=== PATIENT | male | born 1970 ===

== ENCOUNTER 2017-03-14 20:03 | Inpatient (IN) | payer MEDICAID ==
[2017-03-14 20:56] VITALS: BMI 33.6
[2017-03-14] MEDS ORDERED: Sodium Chloride 0.9% 1,000 ML IV STA (20:57)
[2017-03-14 21:26] LABS: HEMATOCRIT 38.6 % (42.0-52.0); MEAN CELL VOLUME 89.6 fl (80.0-105.0); MEAN CORPUSCULAR HEMOGLOBIN 31.3 pg (25.0-35.0); MEAN PLATELET VOLUME 10.9 fl (7.0-11.0); RED CELL DISTRIBUTION WIDTH 12.9 % (11.5-14.5); WHITE BLOOD COUNT 13.9 10^3/ul (4.5-11.0)
[2017-03-14 21:29] LABS: VENOUS BLOOD GAS BASE EXCESS 2.4 mmol/L (0.0-2.0); VENOUS BLOOD PH 7.42 (7.32-7.43)
[2017-03-14 21:36] LABS: ALB/GLOB RATIO 1.4 (1.1-1.8); ALKALINE PHOSPHATASE 61 U/L (38-126); ALT/SGPT 31 U/L (7-56); AST/SGOT 23 U/L (17-59); BILIRUBIN,TOTAL 0.4 mg/dL (0.2-1.3); BLOOD UREA NITROGEN 12 mg/dL (7-21); CARBON DIOXIDE 23 mmol/L (21-33); GFR AFRICAN-AMERICAN > 60; GLUCOSE,RANDOM 110 mg/dL (70-110); TOTAL PROTEIN 6.6 g/dL (5.8-8.3)
[2017-03-14 21:51] LABS: CALCIUM 8.6 mg/dL (8.4-10.5); CHLORIDE 101 mmol/L (95-110); SODIUM 137 mmol/L (132-148)
--- NOTE | 2017-03-14 21:52 | ED PDOC ---
Arrival/HPI - General Chief Complaint: Allergic Reaction Time Seen by Provider: 03/14/17 20:18 Historian: Patient - History of Present Illness Narrative History of Present Illness (Text): 03/14/17 20:55 Ftiz Martinez is a 46 year old male who presents to the Emergency department complaining of severe skin infections to bilateral axillary areas, groin, and an infected rash to bilateral arms and legs. Patient also reports associated low -grade fever, chills and generalized weakness. Patient states he has been using steroid cream for his groin areas, which was prescribed to him previously for a fungal infection. Patient denies any nausea, vomiting, diarrhea, back pain, neck pain, headache, or any other complaints. Symptom Onset: Gradual Symptom Course: Unchanged Activities at Onset: Light Context: Home Past Medical History - Provider Review Nursing Documentation Reviewed: Yes - Cardiac Hx Cardiac Disorders: No - Pulmonary Hx Respiratory Disorders: No - Neurological Hx Neurological Disorder: No - Renal Hx Renal Disorder: No - Endocrine/Metabolic Hx Endocrine Disorders: Yes Hx Hypothyroidism: Yes (no medication) - Hematological/Oncological Hx Blood Disorders: No - Integumentary Hx Dermatological Disorder: No - Musculoskeletal/Rheumatological Hx Musculoskeletal Disorders: No - Gastrointestinal Hx Gastrointestinal Disorders: No - Genitourinary/Gynecological Hx Genitourinary Disorders: No - Psychiatric Hx Psychophysiologic Disorder: Yes Hx Anxiety: Yes Hx Depression: Yes Hx Substance Use: Yes - Anesthesia Hx Anesthesia: No Hx Malignant Hyperthermia: No Family/Social History - Physician Review Nursing Documentation Reviewed: Yes Family/Social History: Unknown Family HX Smoking Status: Never Smoked Hx Alcohol Use: No Hx Substance Use: Yes Substance used: marijuana Allergies/Home Meds Allergies/Adverse Reactions: Allergies No Known Allergies Allergy (Verified 03/14/17 20:56) Home Medications: Home Meds Medication Instructions Recorded Confirmed No Known Home Med 03/14/17 03/14/17 Review of Systems - Physician Review All systems were reviewed & negative as marked: Yes - Review of Systems Constitutional: Fevers, Other (+chills, +generalized weakness) Eyes: Normal ENT: Normal Respiratory: Normal. absent: SOB, Cough Cardiovascular: Normal. absent: Chest Pain Gastrointestinal: Normal. absent: Abdominal Pain, Diarrhea, Nausea, Vomiting Genitourinary Male: Normal. absent: Dysuria, Frequency, Hematuria, Urinary Output Changes Musculoskeletal: Normal. absent: Back Pain, Neck Pain Skin: Rash, Cellulitis Neurological: Normal. absent: Headache, Dizziness Endocrine: Normal Hemo/Lymphatic: Normal Psychiatric: Normal Physical Exam Vital Signs Reviewed: Yes Vital Signs Temp Pulse Resp BP Pulse Ox 03/14/17 23:29 100.4 F H 75 18 90/67 L 99 03/14/17 20:04 99.0 F 77 18 139/74 99 Temperature: Afebrile Blood Pressure: Normal Pulse: Regular Respiratory Rate: Normal Appearance: Positive for: Well-Appearing, Non-Toxic, Comfortable Pain Distress: None Mental Status: Positive for: Alert and Oriented X 3 - Systems Exam Head: Present: Atraumatic, Normocephalic Pupils: Present: PERRL Extroacular Muscles: Present: EOMI Conjunctiva: Present: Normal Mouth: Present: Moist Mucous Membranes Neck: Present: Normal Range of Motion Respiratory/Chest: Present: Clear to Auscultation, Good Air Exchange. No: Respiratory Distress, Accessory Muscle Use Cardiovascular: Present: Regular Rate and Rhythm, Normal S1, S2. No: Murmurs Abdomen: Present: Normal Bowel Sounds. No: Tenderness, Distention, Peritoneal Signs Back: Present: Normal Inspection Upper Extremity: No: Cyanosis, Edema Lower Extremity: No: Edema Neurological: Present: GCS=15, CN II-XII Intact, Speech Normal Skin: Present: Warm, Dry, Erythematous (Severely inflammed, reddened, and raised infected areas to bilateral axilla, scattered papular pustule rash to bilateral arms and legs) Psychiatric: Present: Alert, Oriented x 3, Normal Insight, Normal Concentration Medical Decision Making ED Course and Treatment: 03/14/17 20:55 Impression: 46 year old male complaining of severe skin infection to bilateral axillae and groin and infected rash, with fever, chills, and generalized weakness. Differential Diagnosis included but are not limited to: cellulitis vs. hidradenitis suppurativa Plan: -- Labs, blood cultures, VBG -- IV fluids -- Reassess and disposition Progress Notes: 03/14/17 22:[address] Villavicencio, biomedical service engineer donor relations associate, who is aware and agrees with plan. 03/14/17 23:[address] Paulette Dickey, who is aware and agrees with plan. Accepts pt in to hospitalist service. Pt will go to [facility] observation for cellulitis. Pt is no acute distress, discussed results and hospital observation plan with pt , who is aware and verbalizes understanding. - Lab Interpretations Lab Results: 03/14/17 21:10 03/14/17 21:10 Lab Results 03/14/17 21:10: TSH 3rd Generation 2.41 03/14/17 21:10: pO2 98 H, VBG pH 7.42, VBG pCO2 42.0, VBG HCO3 27.2, VBG Total CO2 28.5 H, VBG O2 Sat (Calc) 98.5 H, VBG Base Excess 2.4 H, VBG Potassium 4.3, Sodium 134.0, Chloride 104.0, Glucose 121 H, Lactate 0.9, FiO2 21.0, Venous Blood Potassium 4.3 03/14/17 21:10: WBC 13.9 H, RBC 4.31, Hgb 13.5 L, Hct 38.6 L, MCV 89.6, MCH 31.3 , MCHC 35.0, RDW 12.9, Plt Count 166, MPV 10.9 03/14/17 21:10: Sodium 137, Chloride 101, Potassium 4.0, Carbon Dioxide 23, Anion Gap 17, BUN 12, Creatinine 0.9, Est GFR ( Amer) > 60, Est GFR (Non- Af Amer) > 60, Random Glucose 110, Calcium 8.6, Total Bilirubin 0.4, AST 23, ALT 31, Alkaline Phosphatase 61, Total Protein 6.6, Albumin 3.9, Globulin 2.7, Albumin/Globulin Ratio 1.4 - Medication Orders Current Medication Orders: Diphenhydramine HCl (Benadryl) 50 mg IVP Q8 PRN PRN Reason: Itching / Pruritus Heparin Sodium (Porcine) (Heparin) 5,000 units SC Q8 LION PRN Reason: Protocol Last Admin: 03/15/17 03:42 Dose: 5,000 units Subcutaneous Administrations Document 03/15/17 03:42 AVL (Rec: 03/15/17 03:42 AVL [id number]) Injection Site MAR Injection Site Right Deltoid Charges for Administration # of Subcutaneous Administrations 1 Clindamycin Phosphate 600 mg/ (Sodium Chloride) 54 mls @ 102 mls/hr IVPB Q8 LION PRN Reason: Protocol Last Admin: 03/15/17 03:13 Dose: 102 mls/hr eMAR Start Stop Document 03/15/17 03:13 AVL (Rec: 03/15/17 03:14 AVL [id number]) Intravenous Solution Start Date 03/15/17 Start Time 02:00 End Date 03/15/17 End time 02:30 Total Infusion Time 30 Pantoprazole Sodium (Protonix Inj) 40 mg IVP DAILY LION Discontinued Medications Diphenhydramine HCl (Benadryl) 50 mg IVP STAT STA Stop: 03/15/17 00:11 Sodium Chloride (Sodium Chloride 0.9%) 1,000 mls @ 999 mls/hr IV .Q1H1M STA Stop: 03/14/17 21:57 Last Admin: 03/14/17 21:36 Dose: 999 mls/hr eMAR Start Stop Document 03/14/17 21:36 SF (Rec: 03/14/17 21:36 SF [id number]) Intravenous Solution Start Date 03/14/17 Start Time 21:36 End Date 03/14/17 End time 22:37 Total Infusion Time 61 Piperacillin Sod/Tazobactam Sod (Zosyn 3.375 In Ns 100ml) 100 mls @ 200 mls/hr IV STAT STA PRN Reason: Protocol Stop: 03/14/17 23:24 Last Admin: 03/14/17 23:44 Dose: 200 mls/hr eMAR Start Stop Document 03/14/17 23:44 NICOL (Rec: 03/14/17 23:44 NICOL [id number]) Intravenous Solution Start Date 03/14/17 Start Time 23:44 Vancomycin HCl (Vancomycin 1gm) 1 gm in 250 mls @ 133.333 mls/hr IVPB STAT STA PRN Reason: Protocol Stop: 03/15/17 00:52 Last Admin: 03/15/17 00:50 Dose: 133.333 mls/hr eMAR Start Stop Document 03/15/17 00:50 AVL (Rec: 03/15/17 00:51 AVL [id number]) Intravenous Solution Start Date 03/15/17 Start Time 00:50 End Date 03/15/17 End time 02:47 Total Infusion Time 117 Oxycodone/Acetaminophen (Percocet 5/325 Mg Tab) 1 tab PO STAT STA Stop: 03/14/17 23:15 Last Admin: 03/14/17 23:44 Dose: 1 tab [facility] Pain Assessment Document 03/14/17 23:44 NICOL (Rec: 03/14/17 23:45 NICOL [id number]) Pain Reassessment Is this a pain reassessment? Yes Sleep Is patient sleeping during reassessment? No Presence of Pain Presence of Pain Yes Location Left, Right or Bilateral Bilateral Pain Location Body Site Arm Re-Assess: [facility] Pain Assessment Document 03/15/17 00:44 AVL (Rec: 03/15/17 01:07 AVL [id number]) Pain Reassessment Is this a pain reassessment? Yes Sleep Is patient sleeping during reassessment? No Presence of Pain Presence of Pain No Pantoprazole Sodium (Protonix Inj) 80 mg IVP DAILY LION Permethrin (Permethrin 5% Cream) 30 gm TOP ONCE ONE Stop: 03/15/17 00:11 - Scribe Statement The provider has reviewed the documentation as recorded by the Tom August Provider Scribe Attestation: All medical record entries made by the Scribe were at my direction and personally dictated by me. I have reviewed the chart and agree that the record accurately reflects my personal performance of the history, physical exam, medical decision making, and the department course for this patient. I have also personally directed, reviewed, and agree with the discharge instructions and disposition. Disposition/Present on Arrival - Present on Arrival Any Indicators Present on Arrival: No History of DVT/PE: No History of Uncontrolled Diabetes: No Urinary Catheter: No History of Decub. Ulcer: No History Surgical Site Infection Following: None - Disposition Have Diagnosis and Disposition been Completed?: Yes Diagnosis: Cellulitis, Hidradenitis axillaris Disposition: HOSPITALIZED Disposition Time: 23:09 Patient Plan: Admission Patient Problems: Current Active Problems Problem Status Onset Cellulitis Acute Hidradenitis axillaris Acute Condition: STABLE
[2017-03-14] MEDS ORDERED: Vancomycin 1gm in NS 250ml 1 GM/250 ML BAG IVPB STA (23:00)
[2017-03-14] MEDS: Oxycodone/Acetaminophen 5/325 mg Tab PO STA (23:44)
[2017-03-14] MEDS: Piperacillin/Tazobact 3.375 gm 100 ML IV STA (23:44)
[2017-03-15] MEDS ORDERED: Permethrin 5% Cream(60 gm) TOP ONE (00:10)
[2017-03-15] MEDS ORDERED: DiphenhydrAMINE 50 mg/ml Inj IVP STA (00:10)
--- NOTE | 2017-03-15 00:10 | CP.PCM.HP ---
<SaudEber nuñez - Last Filed: 03/15/17 00:59> History of Present Illness - History of Present Illness History of Present Illness: 46 M with pertinent PMHx of hyperthyroidism presents with a 2 week duration of a pruritic papular rash on his entire trunk and b/l UE and LE, as well as multiple painful lesions in his b/l axillary and groin areas. Patient states that he did start using a new deodorant around the time the papular rash started , Degree, but does not remember if the rash started after or before. He states that the painful lesions in his axillary and groin areas started about 4 days ago. He started using steroid creams provided by his PCP a few days ago, but they did not help. He then started using an aloe lotion, which provided some relief. Patient states that he lives in an apartment building in [place] and that he has never had bed bugs before. He denies any recent sexual contact. He further denies any history of STDs. Patient denies f/ch/cp/sob/n/v/d/dysuria/change in urination at home. No further complaints. PSHx: Hand surgery PMHx: Hyperthyroidism All: NKDA SocHx: Marijuana and Hookah; No etOH, No cigarettes FamHx: DM Meds: No medications Present on Admission - Present on Admission Any Indicators Present on Admission: No Review of Systems - Hematologic/Lymphatic Additional comments: ROS: Constitutional: pt denies fever, chills, generalized weakness ENT: pt denies dysphagia, otalgia, hearing deficit, rhinorrhea Eyes: pt denies sudden loss of vision, diplopia, blurred vision MSK: pt denies muscle stiffness, joint pain, extremity cramping Cardio: pt denies sob, heart murmur, cp Pulm: pt denies cough, hemoptysis, wheeze GI: pt denies loss of appetite, abdominal pain, constipation, melena, n/v/d : pt denies burning on urination, urinary frequency, hematuria, urinary urgency Neuro: pt denies paresis, paresthesia, dizziness, keith, numbness, tingling Derm: +SEE HPI Endo: pt denies intolerance to heat/cold, diaphoresis, night sweats, polydipsia Psych: pt denies anxiety, depression, mood changes Past Patient History - Past Social History Smoking Status: Never Smoked - CARDIAC Hx Cardiac Disorders: No - PULMONARY Hx Respiratory Disorders: No - NEUROLOGICAL Hx Neurological Disorder: No - RENAL Hx Chronic Kidney Disease: No - ENDOCRINE/METABOLIC Hx Endocrine Disorders: Yes Hx Hypothyroidism: Yes (no medication) - HEMATOLOGICAL/ONCOLOGICAL Hx Blood Disorders: No - INTEGUMENTARY Hx Dermatological Problems: No - MUSCULOSKELETAL/RHEUMATOLOGICAL Hx Musculoskeletal Disorders: No - GASTROINTESTINAL Hx Gastrointestinal Disorders: No - GENITOURINARY/GYNECOLOGICAL Hx Genitourinary Disorders: No - PSYCHIATRIC Hx Psychophysiologic Disorder: Yes Hx Anxiety: Yes Hx Depression: Yes Hx Substance Use: Yes - SURGICAL HISTORY Hx Surgeries: No - ANESTHESIA Hx Anesthesia: No Hx Malignant Hyperthermia: No Meds Allergies/Adverse Reactions: Allergies Allergy/AdvReac Type Severity Reaction Status Date / Time No Known Allergies Allergy Verified 03/14/17 20:56 Physical Exam - Additional Findings Additional findings: Phys Exam: VS as below Constitutional: a&o x 4, nad Head and Neck: neck supple, no jvd, trachea midline, carotid midline, no cervical/head mass Eyes: romario, nonicteric sclera, eom intact ENT: auditory acuity grossly intact, throat not congested, no nasal deformity Cardio: rrr, no m/r/g, no carotid bruit, nml s1, s2 Pulm: no accessory muscle use, equal nml breath sounds bilaterally, ctab Abd: s/nt/nd, nbs x 4 q, no palpable masses Derm: +Diffuse papular rash on trunk, b/l UE and LE; +Fluctuant lesions in axillary and groin areas with yellow pustular discharge Extr: no edema, no cyanosis, no calf tenderness, no lesions, no varicosities Neuro: cn II-XII grossly intact, ue and le 5/5 muscle strength bilaterally, no los ue, le bilaterally and core Results - Vital Signs Recent Vital Signs: Last Vital Signs Temp 100.4 F H 03/14/17 23:29 Pulse 75 03/14/17 23:29 Resp 18 03/14/17 23:29 BP 90/67 L 03/14/17 23:29 Pulse Ox 99 03/14/17 23:29 - Labs Result Diagrams: 03/14/17 21:10 03/14/17 21:10 Labs: Laboratory Results - last 24 hr 03/14/17 03/14/17 03/14/17 21:10 21:10 21:10 WBC 13.9 H RBC 4.31 Hgb 13.5 L Hct 38.6 L MCV 89.6 MCH 31.3 MCHC 35.0 RDW 12.9 Plt Count 166 MPV 10.9 pO2 98 H VBG pH 7.42 VBG pCO2 42.0 VBG HCO3 27.2 VBG Total CO2 28.5 H VBG O2 Sat (Calc) 98.5 H VBG Base Excess 2.4 H VBG Potassium 4.3 Sodium 137 134.0 Chloride 101 104.0 Glucose 121 H Lactate 0.9 FiO2 21.0 Potassium 4.0 Carbon Dioxide 23 Anion Gap 17 BUN 12 Creatinine 0.9 Est GFR ( Amer) > 60 Est GFR (Non-Af Amer) > 60 Random Glucose 110 Calcium 8.6 Total Bilirubin 0.4 AST 23 ALT 31 Alkaline Phosphatase 61 Total Protein 6.6 Albumin 3.9 Globulin 2.7 Albumin/Globulin Ratio 1.4 Venous Blood Potassium 4.3 Assessment & Plan - Assessment and Plan (Free Text) Assessment: A/P: 46 M with diffuse papular rash of unknown etiology as well as axillary and groin fluctuant lesions indicative of hydradenitis suppurativa Groin and Axillary Fluctuant Lesions Likely 2/2 Hydradenitis Suppurativa - Blood Cx, Urine Cx - Zosyn - Clindamycin - Surgery c/s: Vanessa - 1 dose of percocet given in ED - WBC elevated; Fever - Order Tylenol prn for fever if continues Diffuse Papular Rash - Benadryl - Permethrin cream - ID consult if continues or worsens - Currently in isolation and contact precautions Hx of Hyperthyroidism - TSH ordered - f/u PPX - Protonix/Heparin sc <Chip Dickey N - Last Filed: 03/16/17 06:11> Results - Vital Signs Recent Vital Signs: Last Vital Signs Temp 97 F L 03/15/17 16:00 Pulse 71 03/15/17 16:00 Resp 20 03/15/17 16:00 BP 122/78 03/15/17 16:00 Pulse Ox 100 03/15/17 16:00 - Labs Result Diagrams: 03/15/17 08:07 03/15/17 08:07
[2017-03-15] MEDS ORDERED: DiphenhydrAMINE 50 mg/ml Inj IVP PRN (00:12)
[2017-03-15] MEDS: Piperacillin/Tazobact 3.375 gm 100 ML IV STA (00:53)
--- NOTE | 2017-03-15 05:57 | CP.PCM.CON ---
<Rochelle Patterson - Last Filed: 03/15/17 07:49> History of Present Illness - History of Present Illness History of Present Illness: General surgery consult for Dr. Vandana Patterson, PGY-1 Pt S & E at bedside. 46M w/PMH sig for hyperthyroidism consulted for B/L axillary lesions x 1 mo. Pt reports he first noted the lesions approx 1 mo ago, which have progressively becoming larger and more painful. Right sided axillary lesion spontaneously drained 2 days ago with purulent discharge. Left sided lesions have not drained. Admits to recent change in deodorant. Pt denies ever having lesions prior. Denies N/V/F/C, SOB, CP, other complaints. PMH: Hyperthyroidism, Rash 2/2 possible bedbug infestation (current) PSH: Hand sx All: NKDA SH: Denies tobacco, Etoh use, admits to MJ and Hookah use Review of Systems - Review of Systems All systems: reviewed and no additional remarkable complaints except - Constitutional Constitutional: absent: Chills, Fever, Headache - EENT Eyes: absent: Change in Vision Nose/Mouth/Throat: absent: Sore Throat - Cardiovascular Cardiovascular: absent: Chest Pain - Respiratory Respiratory: absent: Cough - Gastrointestinal Gastrointestinal: absent: Abdominal Pain, Nausea, Vomiting - Genitourinary Genitourinary: absent: Change in Urinary Stream - Musculoskeletal Musculoskeletal: absent: Back Pain - Integumentary Integumentary: Changing Lesions, Erythema, Hirsutism, Lesions, New Lesions, Non- Healing Lesions, Pruritus, Rash, Skin Pain, Swelling, Wounds - Neurological Neurological: absent: Weakness - Psychiatric Psychiatric: absent: Abnormal Sleep Pattern Past Patient History - Past Social History Smoking Status: Never Smoked - CARDIAC Hx Cardiac Disorders: No - PULMONARY Hx Respiratory Disorders: No - NEUROLOGICAL Hx Neurological Disorder: No - RENAL Hx Chronic Kidney Disease: No - ENDOCRINE/METABOLIC Hx Endocrine Disorders: Yes Hx Hypothyroidism: Yes (no medication) - HEMATOLOGICAL/ONCOLOGICAL Hx Blood Disorders: No - INTEGUMENTARY Hx Dermatological Problems: No - MUSCULOSKELETAL/RHEUMATOLOGICAL Hx Musculoskeletal Disorders: No - GASTROINTESTINAL Hx Gastrointestinal Disorders: No - GENITOURINARY/GYNECOLOGICAL Hx Genitourinary Disorders: No - PSYCHIATRIC Hx Psychophysiologic Disorder: Yes Hx Anxiety: Yes Hx Depression: Yes Hx Substance Use: Yes - SURGICAL HISTORY Hx Surgeries: No - ANESTHESIA Hx Anesthesia: No Hx Malignant Hyperthermia: No Meds Allergies/Adverse Reactions: Allergies Allergy/AdvReac Type Severity Reaction Status Date / Time No Known Allergies Allergy Verified 03/14/17 20:56 - Medications Medications: Current Medications Diphenhydramine HCl (Benadryl) 50 mg IVP Q8 PRN PRN Reason: Itching / Pruritus Heparin Sodium (Porcine) (Heparin) 5,000 units SC Q8 LION PRN Reason: Protocol Last Admin: 03/15/17 03:42 Dose: 5,000 units Clindamycin Phosphate 600 mg/ (Sodium Chloride) 54 mls @ 102 mls/hr IVPB Q8 LION PRN Reason: Protocol Last Admin: 03/15/17 03:13 Dose: 102 mls/hr Pantoprazole Sodium (Protonix Inj) 40 mg IVP DAILY [facility] Physical Exam - Constitutional Appears: Non-toxic, No Acute Distress - Head Exam Head Exam: ATRAUMATIC, NORMAL INSPECTION, NORMOCEPHALIC - Eye Exam Eye Exam: EOMI, Normal appearance - ENT Exam ENT Exam: Mucous Membranes Moist, Normal Exam - Neck Exam Neck exam: Positive for: Full Rom, Normal Inspection - Respiratory Exam Respiratory Exam: Clear to Auscultation Bilateral, NORMAL BREATHING PATTERN - Cardiovascular Exam Cardiovascular Exam: REGULAR RHYTHM, +S1, +S2 - GI/Abdominal Exam GI & Abdominal Exam: Normal Bowel Sounds, Soft. absent: Distended (obese), Tenderness - Extremities Exam Extremities exam: Positive for: tenderness (B/L axillary area). Negative for: normal inspection (B/L axilla w/multiple erythematous, fluctuant areas, tender to palpation- right side with scant purulent drainage), pedal edema - Neurological Exam Neurological exam: Alert, CN II-XII Intact, Oriented x3 - Psychiatric Exam Psychiatric exam: Normal Affect, Normal Mood - Skin Additional comments: please see extremity exam for axillary skin findings Results - Vital Signs Recent Vital Signs: Last Vital Signs Temp 99.0 F 03/15/17 01:46 Pulse 73 03/15/17 01:46 Resp 20 03/15/17 01:46 BP 117/75 03/15/17 01:46 Pulse Ox 99 03/14/17 23:29 - Labs Result Diagrams: 03/14/17 21:10 03/14/17 21:10 Assessment & Plan - Assessment and Plan (Free Text) Assessment: 46M W/hidradenitis suppurativa of B/L axillary region Plan: local wound care warm compresses to axilla B/L Already on Clindamycin Monitor Further recs as per Dr. Vanessa SANTOS attending Yesenia, PGY-1 - Date & Time Date: 03/15/17 Time: 05:30 <Scott Mendez - Last Filed: 03/16/17 21:29> Meds - Medications Medications: Current Medications Acetaminophen (Tylenol 325mg Tab) 650 mg PO Q6H PRN PRN Reason: Pain, moderate (4-7) Last Admin: 03/15/17 10:17 Dose: 650 mg Diphenhydramine HCl (Benadryl) 50 mg IVP Q8 PRN PRN Reason: Itching / Pruritus Heparin Sodium (Porcine) (Heparin) 5,000 units SC Q8 LION PRN Reason: Protocol Last Admin: 03/16/17 14:23 Dose: 5,000 units Ceftaroline Fosamil 400 mg/ (Sodium Chloride) 100 mls @ 100 mls/hr IVPB Q12 LION PRN Reason: Protocol Stop: 03/22/17 10:01 Last Admin: 03/16/17 09:59 Dose: 100 mls/hr Ketorolac Tromethamine (Toradol) 30 mg IVP Q6H PRN PRN Reason: Pain, severe (8-10) Pantoprazole Sodium (Protonix Ec Tab) 40 mg PO 0600 LION Last Admin: 03/16/17 06:10 Dose: 40 mg Results - Vital Signs Recent Vital Signs: Last Vital Signs Temp 98.1 F 03/16/17 17:41 Pulse 69 03/16/17 17:41 Resp 19 03/16/17 17:41 BP 118/74 03/16/17 17:41 Pulse Ox 97 03/16/17 17:41 - Labs Result Diagrams: 03/16/17 07:30 03/16/17 07:30 Labs: Laboratory Results - last 24 hr 03/16/17 03/16/17 03/16/17 07:30 07:30 08:30 WBC 9.6 D RBC 4.56 Hgb 14.2 Hct 40.8 L MCV 89.5 MCH 31.1 MCHC 34.8 RDW 12.9 Plt Count 191 MPV 10.7 Gran % 61.9 Lymph % (Auto) 28.3 Metcalfe % (Auto) 5.6 Eos % (Auto) 3.8 Baso % (Auto) 0.4 Gran # 5.93 Lymph # 2.7 [place]calfe # 0.5 Eos # 0.4 Baso # 0.04 Sodium 142 Potassium 3.9 Chloride 104 Carbon Dioxide 28 Anion Gap 14 BUN 11 Creatinine 0.9 Est GFR ( Amer) > 60 Est GFR (Non-Af Amer) > 60 Random Glucose 113 H Calcium 8.9 Total Bilirubin 0.4 AST 20 ALT 36 Alkaline Phosphatase 69 Total Protein 7.2 Albumin 3.9 Globulin 3.3 Albumin/Globulin Ratio 1.2 Free T4 1.45 TSH 3rd Generation 4.58 Attending/Attestation - Attestation I have personally seen and examined this patient.: Yes I have fully participated in the care of the patient.: Yes I have reviewed all pertinent clinical information: Yes Notes (Text): 03/16/17 21:27 Pt was seen and examined at bedside Agree with above note and assessment Pt with B/L suppurative hydradenitis No drainable abscess at present. C/w IV antibiotics local wound care c.w current mx Plan d.w pt in detail. Risk and benefit explained in detail.
[2017-03-15 08:11] LABS: BASO # 0.03 K/mm3 (0.0-2.0); BASO % 0.2 % (0.0-3.0); EOS # 0.3 (0.0-0.7); GRAN # 10.68 (1.4-6.5); GRAN % 77.8 % (50.0-68.0); HEMATOCRIT 37.3 % (42.0-52.0); LYMPH # 2.1 (1.2-3.4); LYMPH % 15.4 % (22.0-35.0); MEAN CELL VOLUME 89.9 fl (80.0-105.0); MEAN CORPUSCULAR HEMOGLOBIN 30.8 pg (25.0-35.0); MEAN CORPUSCULAR HGB CONC 34.3 g/dl (31.0-37.0); MEAN PLATELET VOLUME 10.7 fl (7.0-11.0); MONO # 0.6 (0.1-0.6); MONO % 4.6 % (1.0-6.0); WHITE BLOOD COUNT 13.7 10^3/ul (4.5-11.0)
[2017-03-15 08:21] LABS: ALB/GLOB RATIO 1.2 (1.1-1.8); ALKALINE PHOSPHATASE 70 U/L (38-126); ALT/SGPT 37 U/L (7-56); AST/SGOT 19 U/L (17-59); BILIRUBIN,TOTAL 0.5 mg/dL (0.2-1.3); BLOOD UREA NITROGEN 10 mg/dL (7-21); CALCIUM 8.4 mg/dL (8.4-10.5); CARBON DIOXIDE 28 mmol/L (21-33); CHLORIDE 102 mmol/L (95-110); GFR AFRICAN-AMERICAN > 60; GLUCOSE,RANDOM 97 mg/dL (70-110); POTASSIUM 3.8 mmol/L (3.6-5.0); SODIUM 140 mmol/L (132-148); TOTAL PROTEIN 6.9 g/dL (5.8-8.3)
--- NOTE | 2017-03-15 11:33 | CP.PCM.CON ---
History of Present Illness - History of Present Illness History of Present Illness: 46 year old male with PMH of hyperthyroidism, obesity with BMI 34, history of hand surgery came in to [facility] complaining of pain, swelling and discharge from both axillary areas, which started about a week ago, which happened days after he started using a different kind of deodorant. He is also complaining of a rash on his anterior trunk, legs since 2 weeks ago and apparently he has had a history of bed bugs. He was given steroid creams by his PMD a few days ago, which did not help. He denies fever or chills, no nausea or vomiting, no chest pain, no headache or dizziness, no SOB, no cough or rhinorrhea, no abdominal pain, no diarrhea, no dysuria. Infectious Diseases consult is requested to further evaluate and manage. Review of Systems - Review of Systems All systems: reviewed and no additional remarkable complaints except (as per HPI ) Past Patient History - Past Social History Smoking Status: Never Smoked - CARDIAC Hx Cardiac Disorders: No - PULMONARY Hx Respiratory Disorders: No - NEUROLOGICAL Hx Neurological Disorder: No - RENAL Hx Chronic Kidney Disease: No - ENDOCRINE/METABOLIC Hx Endocrine Disorders: Yes Hx Hypothyroidism: Yes (no medication) - HEMATOLOGICAL/ONCOLOGICAL Hx Blood Disorders: No - INTEGUMENTARY Hx Dermatological Problems: No - MUSCULOSKELETAL/RHEUMATOLOGICAL Hx Musculoskeletal Disorders: No - GASTROINTESTINAL Hx Gastrointestinal Disorders: No - GENITOURINARY/GYNECOLOGICAL Hx Genitourinary Disorders: No - PSYCHIATRIC Hx Psychophysiologic Disorder: Yes Hx Anxiety: Yes Hx Depression: Yes Hx Substance Use: Yes - SURGICAL HISTORY Hx Surgeries: No - ANESTHESIA Hx Anesthesia: No Hx Malignant Hyperthermia: No Meds Allergies/Adverse Reactions: Allergies Allergy/AdvReac Type Severity Reaction Status Date / Time No Known Allergies Allergy Verified 03/14/17 20:56 - Medications Medications: Current Medications Acetaminophen (Tylenol 325mg Tab) 650 mg PO Q6H PRN PRN Reason: Pain, moderate (4-7) Diphenhydramine HCl (Benadryl) 50 mg IVP Q8 PRN PRN Reason: Itching / Pruritus Heparin Sodium (Porcine) (Heparin) 5,000 units SC Q8 LION PRN Reason: Protocol Last Admin: 03/15/17 07:25 Dose: Not Given Clindamycin Phosphate 600 mg/ (Sodium Chloride) 54 mls @ 102 mls/hr IVPB Q8 LION PRN Reason: Protocol Last Admin: 03/15/17 07:23 Dose: Not Given Ketorolac Tromethamine (Toradol) 30 mg IVP Q6H PRN PRN Reason: Pain, severe (8-10) Pantoprazole Sodium (Protonix Inj) 40 mg IVP DAILY [facility] Physical Exam - Constitutional Appears: Non-toxic, No Acute Distress - Head Exam Head Exam: NORMAL INSPECTION - ENT Exam ENT Exam: Mucous Membranes Moist - Neck Exam Neck exam: Negative for: Lymphadenopathy, Meningismus - Respiratory Exam Respiratory Exam: Decreased Breath Sounds - Cardiovascular Exam Cardiovascular Exam: +S1, +S2 - GI/Abdominal Exam GI & Abdominal Exam: Soft. absent: Tenderness - Skin Additional comments: axillary areas with swelling, serosanguinous discharge, tenderness on palpation , fluctuance Results - Vital Signs Recent Vital Signs: Last Vital Signs Temp 100.0 F H 03/15/17 08:07 Pulse 75 03/15/17 08:07 Resp 20 03/15/17 08:07 BP 113/77 03/15/17 08:07 Pulse Ox 98 03/15/17 08:07 - Labs Result Diagrams: 03/15/17 08:07 03/15/17 08:07 Labs: Laboratory Results - last 24 hr 03/15/17 03/15/17 08:07 08:07 WBC 13.7 H RBC 4.15 Hgb 12.8 L Hct 37.3 L MCV 89.9 MCH 30.8 MCHC 34.3 RDW 13.0 Plt Count 167 MPV 10.7 Gran % 77.8 H Lymph % (Auto) 15.4 L [place] % (Auto) 4.6 Eos % (Auto) 2.0 Baso % (Auto) 0.2 Gran # 10.68 H Lymph # 2.1 [place] # 0.6 Eos # 0.3 Baso # 0.03 Sodium 140 Potassium 3.8 Chloride 102 Carbon Dioxide 28 Anion Gap 14 BUN 10 Creatinine 0.9 Est GFR ( Amer) > 60 Est GFR (Non-Af Amer) > 60 Random Glucose 97 Calcium 8.4 Total Bilirubin 0.5 AST 19 ALT 37 Alkaline Phosphatase 70 Total Protein 6.9 Albumin 3.7 Globulin 3.2 Albumin/Globulin Ratio 1.2 Assessment & Plan - Assessment and Plan (Free Text) Plan: Assessment Consider axillary skin and skin structure infection, purulent, which may have been associated with hypersensitivity to deodorant pruritic skin rash, R/O bed bugs hyperthyroidism obesity with BMI 34 history of hand surgery Plan Started patient on Teflaro pending surgical evaluation and plan of treatment, wound cx, blood cx Permethrin cream to given to patient and continue contact isolation for now will monitor clinically
[2017-03-15] MEDS: Oxycodone/Acetaminophen 5/325 mg Tab PO STA (22:23)
[2017-03-16] MEDS: Pantoprazole 40 mg EC Tab PO SCH (06:10)
[2017-03-16 07:45] LABS: BASO # 0.04 K/mm3 (0.0-2.0); BASO % 0.4 % (0.0-3.0); EOS # 0.4 (0.0-0.7); EOS % 3.8 % (1.5-5.0); GRAN # 5.93 (1.4-6.5); GRAN % 61.9 % (50.0-68.0); HEMATOCRIT 40.8 % (42.0-52.0); LYMPH # 2.7 (1.2-3.4); LYMPH % 28.3 % (22.0-35.0); MEAN CELL VOLUME 89.5 fl (80.0-105.0); MEAN CORPUSCULAR HEMOGLOBIN 31.1 pg (25.0-35.0); MEAN CORPUSCULAR HGB CONC 34.8 g/dl (31.0-37.0); MEAN PLATELET VOLUME 10.7 fl (7.0-11.0); MONO # 0.5 (0.1-0.6); MONO % 5.6 % (1.0-6.0); RED CELL DISTRIBUTION WIDTH 12.9 % (11.5-14.5); WHITE BLOOD COUNT 9.6 10^3/ul (4.5-11.0)
[2017-03-16 07:59] LABS: ALB/GLOB RATIO 1.2 (1.1-1.8); ALKALINE PHOSPHATASE 69 U/L (38-126); ALT/SGPT 36 U/L (7-56); AST/SGOT 20 U/L (17-59); BILIRUBIN,TOTAL 0.4 mg/dL (0.2-1.3); BLOOD UREA NITROGEN 11 mg/dL (7-21); CALCIUM 8.9 mg/dL (8.4-10.5); CARBON DIOXIDE 28 mmol/L (21-33); CHLORIDE 104 mmol/L (95-110); GFR AFRICAN-AMERICAN > 60; GLUCOSE,RANDOM 113 mg/dL (70-110); POTASSIUM 3.9 mmol/L (3.6-5.0); SODIUM 142 mmol/L (132-148); TOTAL PROTEIN 7.2 g/dL (5.8-8.3)
--- NOTE | 2017-03-16 08:11 | CP.PCM.PN ---
<Neal Chin - Last Filed: 03/16/17 08:28> Subjective - Date & Time of Evaluation Date of Evaluation: 03/16/17 Time of Evaluation: 07:30 - Subjective Subjective: SURGERY PROGRESS NOTE FOR DR. MENDEZ 46M seen and examined at bedside. Patient states the abscess in bilateral axillae region are painful when touched. States that some on both sides have been spontaneously draining. Denies fevers, chills. Objective - Vital Signs/Intake and Output Vital Signs (last 24 hours): Temp Pulse Resp BP Pulse Ox 98.5 F 64 20 103/70 98 03/16/17 06:00 03/16/17 06:00 03/16/17 06:00 03/16/17 06:00 03/16/17 06:00 Intake and Output: 03/16/17 03/16/17 06:59 18:59 Intake Total 380 Balance 380 - Medications Medications: Current Medications Acetaminophen (Tylenol 325mg Tab) 650 mg PO Q6H PRN PRN Reason: Pain, moderate (4-7) Last Admin: 03/15/17 10:17 Dose: 650 mg Diphenhydramine HCl (Benadryl) 50 mg IVP Q8 PRN PRN Reason: Itching / Pruritus Heparin Sodium (Porcine) (Heparin) 5,000 units SC Q8 LION PRN Reason: Protocol Last Admin: 03/16/17 06:09 Dose: 5,000 units Ceftaroline Fosamil 400 mg/ (Sodium Chloride) 100 mls @ 100 mls/hr IVPB Q12 LION PRN Reason: Protocol Stop: 03/22/17 10:01 Last Admin: 03/15/17 22:14 Dose: 100 mls/hr Ketorolac Tromethamine (Toradol) 30 mg IVP Q6H PRN PRN Reason: Pain, severe (8-10) Pantoprazole Sodium (Protonix Ec Tab) 40 mg PO 0600 [facility] Last Admin: 03/16/17 06:10 Dose: 40 mg - Labs Labs: 03/16/17 07:30 03/16/17 07:30 - Constitutional Appears: Non-toxic, No Acute Distress - Respiratory Exam Respiratory Exam: Clear to Ausculation Bilateral, NORMAL BREATHING PATTERN - Cardiovascular Exam Cardiovascular Exam: REGULAR RHYTHM, +S1, +S2 - Extremities Exam Additional comments: multiple indurated abscesses in bilateral armpits, some spontaneously draining, one fluctuant in the left axilla region - Neurological Exam Neurological Exam: Alert, Awake - Skin Skin Exam: Dry, Intact, Normal Color, Warm Assessment and Plan - Assessment and Plan (Free Text) Assessment: 46M with hidradenitis Plan: - pain control - antibiotics as per ID - I&D of left fluctuant abscess Further recs discuss with Dr. Vanessa Chin, PGY2 <Scott Mendez - Last Filed: 03/20/17 21:35> Objective - Vital Signs/Intake and Output Vital Signs (last 24 hours): Temp Pulse Resp BP Pulse Ox 98.2 F 68 20 118/57 L 97 03/18/17 17:57 03/18/17 17:57 03/18/17 17:57 03/18/17 17:57 03/18/17 17:57 - Labs Labs: 03/18/17 06:10 03/18/17 06:10 Attending/Attestation - Attestation I have personally seen and examined this patient.: Yes I have fully participated in the care of the patient.: Yes I have reviewed all pertinent clinical information, including history, physical exam and plan: Yes Notes (Text): 03/20/17 21:35 Pt was seen and examined at bedside Agree with above note and assessment Pt with B/L Axillary Hydradenitis with self draining small abscess Local wound care C.w IV antibiotics Reg diet Plan d.w pt in detail.
--- NOTE | 2017-03-16 10:20 | CP.PCM.PN ---
Subjective - Date & Time of Evaluation Date of Evaluation: 03/16/17 Time of Evaluation: 09:30 - Subjective Subjective: Patient is feeling better, no fevers overnight, less pain and swelling of the axillary areas. Objective - Vital Signs/Intake and Output Vital Signs (last 24 hours): Temp Pulse Resp BP Pulse Ox 97 F L 71 20 122/78 100 03/15/17 16:00 03/15/17 16:00 03/15/17 16:00 03/15/17 16:00 03/15/17 16:00 Intake and Output: 03/15/17 03/16/17 18:59 06:59 Intake Total 380 Balance 380 - Medications Medications: Current Medications Acetaminophen (Tylenol 325mg Tab) 650 mg PO Q6H PRN PRN Reason: Pain, moderate (4-7) Last Admin: 03/15/17 10:17 Dose: 650 mg Diphenhydramine HCl (Benadryl) 50 mg IVP Q8 PRN PRN Reason: Itching / Pruritus Heparin Sodium (Porcine) (Heparin) 5,000 units SC Q8 LION PRN Reason: Protocol Last Admin: 03/16/17 06:09 Dose: 5,000 units Ceftaroline Fosamil 400 mg/ (Sodium Chloride) 100 mls @ 100 mls/hr IVPB Q12 LION PRN Reason: Protocol Stop: 03/22/17 10:01 Last Admin: 03/15/17 22:14 Dose: 100 mls/hr Ketorolac Tromethamine (Toradol) 30 mg IVP Q6H PRN PRN Reason: Pain, severe (8-10) Pantoprazole Sodium (Protonix Ec Tab) 40 mg PO 0600 [facility] Last Admin: 03/16/17 06:10 Dose: 40 mg - Constitutional Appears: Non-toxic, No Acute Distress - Head Exam Head Exam: NORMAL INSPECTION - ENT Exam ENT Exam: Mucous Membranes Moist - Neck Exam Neck Exam: absent: Lymphadenopathy, Meningismus - Respiratory Exam Respiratory Exam: Decreased Breath Sounds - Cardiovascular Exam Cardiovascular Exam: +S1, +S2 - GI/Abdominal Exam GI & Abdominal Exam: Soft. absent: Tenderness - Skin Skin Exam: Rash (papular rash noted on the trunk , slowly improving) Assessment and Plan - Assessment and Plan (Free Text) Plan: Assessment Consider axillary skin and skin structure infection, purulent, which may have been associated with hypersensitivity to deodorant, slowly improving pruritic skin rash, R/O bed bugs S/P treatment with Permethrin hyperthyroidism obesity with BMI 34 history of hand surgery Plan continue Teflaro day 2 pending surgical evaluation and plan of treatment, wound cx; blood cx are negative Permethrin cream has been given to the patient will contine uto monitor clinically and observe rash
[2017-03-16 11:24] LABS: FREE T4 1.45 ng/dL (0.78-2.19)
[2017-03-16 11:37] LABS: THYROID STIMULATING HORMONE 4.58 mIU/mL (0.46-4.68)
--- NOTE | 2017-03-16 12:14 | CP.PCM.PN ---
<Scott Funez - Last Filed: 03/16/17 12:10> Subjective - Date & Time of Evaluation Date of Evaluation: 03/16/17 Time of Evaluation: 12:10 - Subjective Subjective: Pt seen and examined at bedside. No acute overnight events. Pt with improved pain in axilla b/l. Pt states he wants to take a shower at this time. Denies CP , SOB, N/V/D, fever, chills. Objective - Vital Signs/Intake and Output Vital Signs (last 24 hours): Temp Pulse Resp BP Pulse Ox 98.5 F 64 20 103/70 98 03/16/17 06:00 03/16/17 06:00 03/16/17 06:00 03/16/17 06:00 03/16/17 06:00 Intake and Output: 03/16/17 03/16/17 06:59 18:59 Intake Total 380 Balance 380 - Medications Medications: Current Medications Acetaminophen (Tylenol 325mg Tab) 650 mg PO Q6H PRN PRN Reason: Pain, moderate (4-7) Last Admin: 03/15/17 10:17 Dose: 650 mg Diphenhydramine HCl (Benadryl) 50 mg IVP Q8 PRN PRN Reason: Itching / Pruritus Heparin Sodium (Porcine) (Heparin) 5,000 units SC Q8 LION PRN Reason: Protocol Last Admin: 03/16/17 06:09 Dose: 5,000 units Ceftaroline Fosamil 400 mg/ (Sodium Chloride) 100 mls @ 100 mls/hr IVPB Q12 LION PRN Reason: Protocol Stop: 03/22/17 10:01 Last Admin: 03/16/17 09:59 Dose: 100 mls/hr Ketorolac Tromethamine (Toradol) 30 mg IVP Q6H PRN PRN Reason: Pain, severe (8-10) Pantoprazole Sodium (Protonix Ec Tab) 40 mg PO 0600 [facility] Last Admin: 03/16/17 06:10 Dose: 40 mg - Labs Labs: 03/16/17 07:30 03/16/17 07:30 - Constitutional Appears: Non-toxic, No Acute Distress - Head Exam Head Exam: ATRAUMATIC, NORMAL INSPECTION, NORMOCEPHALIC - ENT Exam ENT Exam: Mucous Membranes Moist, Normal Exam - Respiratory Exam Respiratory Exam: Clear to Ausculation Bilateral, NORMAL BREATHING PATTERN. absent: Rales, Rhonchi, Wheezes - Cardiovascular Exam Cardiovascular Exam: RRR, +S1, +S2 - GI/Abdominal Exam GI & Abdominal Exam: Soft, Normal Bowel Sounds. absent: Tenderness - Extremities Exam Extremities Exam: absent: Pedal Edema Additional comments: B/l axilla with erythematous, firm lesions with Left worse than right. Right with mild drainage, no drainage on left. - Neurological Exam Neurological Exam: Alert, Awake, Oriented x3 - Psychiatric Exam Psychiatric exam: Normal Affect, Normal Mood - Skin Skin Exam: Intact, Rash (Papules throughout entire torso), Warm Assessment and Plan - Assessment and Plan (Free Text) Plan: 46 y/o M with PMH of hyperthyroidism presents with hidradentitis suppurativa and rash likely thought to be bed bugs. Patient is currently undergoing treatment with Teflaro for Hidradentitis suppurativa and is s/p Permetherin use for rash. Patient will have I and D by surgery if left axilla lesion does not drain. Patient will be followed by Surgery and ID. 1. Hidradentitis suppurativa Continue Teflaro Blood cultures negative Follow Surgery recs, possible I and D Follow ID recs 2. Rash, likely bed bugs S/p Permethrin cream Benadryl PRN for itching Contact precautions 3. PPX Heparin Protonix [place], PGY-2 <Lex Adorno - Last Filed: 03/16/17 16:00> Objective - Vital Signs/Intake and Output Vital Signs (last 24 hours): Temp Pulse Resp BP Pulse Ox 98.5 F 64 20 103/70 98 03/16/17 06:00 03/16/17 06:00 03/16/17 06:00 03/16/17 06:00 03/16/17 06:00 Intake and Output: 03/16/17 03/16/17 06:59 18:59 Intake Total 380 600 Balance 380 600 - Medications Medications: Current Medications Acetaminophen (Tylenol 325mg Tab) 650 mg PO Q6H PRN PRN Reason: Pain, moderate (4-7) Last Admin: 03/15/17 10:17 Dose: 650 mg Diphenhydramine HCl (Benadryl) 50 mg IVP Q8 PRN PRN Reason: Itching / Pruritus Heparin Sodium (Porcine) (Heparin) 5,000 units SC Q8 LION PRN Reason: Protocol Last Admin: 03/16/17 14:23 Dose: 5,000 units Ceftaroline Fosamil 400 mg/ (Sodium Chloride) 100 mls @ 100 mls/hr IVPB Q12 LION PRN Reason: Protocol Stop: 03/22/17 10:01 Last Admin: 03/16/17 09:59 Dose: 100 mls/hr Ketorolac Tromethamine (Toradol) 30 mg IVP Q6H PRN PRN Reason: Pain, severe (8-10) Pantoprazole Sodium (Protonix Ec Tab) 40 mg PO 0600 [facility] Last Admin: 03/16/17 06:10 Dose: 40 mg - Labs Labs: 03/16/17 07:30 03/16/17 07:30 Attending/Attestation - Attestation I have personally seen and examined this patient.: Yes I have fully participated in the care of the patient.: Yes I have reviewed all pertinent clinical information, including history, physical exam and plan: Yes Notes (Text): 03/16/17 15:44 46 year old male who presented with rash and hydradenitis supprativa. Continue with iv antibiotics as per ID. Surgery is following as well for possible I&D. Fever has come down and leukocytosis has improved. Will follow up on cultures and with ID/surgery recommendations. Lex Adorno MD Hospitalist.
[2017-03-17] MEDS: Pantoprazole 40 mg EC Tab PO SCH (05:33)
[2017-03-17 07:11] LABS: BASO # 0.03 K/mm3 (0.0-2.0); BASO % 0.3 % (0.0-3.0); EOS # 0.4 (0.0-0.7); EOS % 4.4 % (1.5-5.0); GRAN # 4.84 (1.4-6.5); GRAN % 55.2 % (50.0-68.0); LYMPH # 2.9 (1.2-3.4); LYMPH % 33.4 % (22.0-35.0); MEAN CELL VOLUME 89.1 fl (80.0-105.0); MEAN CORPUSCULAR HEMOGLOBIN 30.7 pg (25.0-35.0); MEAN CORPUSCULAR HGB CONC 34.5 g/dl (31.0-37.0); MEAN PLATELET VOLUME 10.5 fl (7.0-11.0); MONO # 0.6 (0.1-0.6); MONO % 6.7 % (1.0-6.0); RED CELL DISTRIBUTION WIDTH 12.7 % (11.5-14.5); WHITE BLOOD COUNT 8.8 10^3/ul (4.5-11.0)
[2017-03-17 07:34] LABS: ALB/GLOB RATIO 1.3 (1.1-1.8); ALKALINE PHOSPHATASE 69 U/L (38-126); ALT/SGPT 35 U/L (7-56); AST/SGOT 31 U/L (17-59); BILIRUBIN,TOTAL 0.3 mg/dL (0.2-1.3); BLOOD UREA NITROGEN 12 mg/dL (7-21); CALCIUM 8.6 mg/dL (8.4-10.5); CARBON DIOXIDE 29 mmol/L (21-33); CHLORIDE 103 mmol/L (98-107); GFR AFRICAN-AMERICAN > 60; GLUCOSE,RANDOM 90 mg/dL (70-110); POTASSIUM 4.6 mmol/L (3.6-5.0); SODIUM 142 mmol/L (132-148)
[2017-03-17 08:37] VITALS: RESP 20
--- NOTE | 2017-03-17 13:19 | CP.PCM.PN ---
Subjective - Date & Time of Evaluation Date of Evaluation: 03/17/17 Time of Evaluation: 10:25 - Subjective Subjective: Comfortable, not in distress, afebrile, less pain in the axillary areas. Objective - Vital Signs/Intake and Output Vital Signs (last 24 hours): Temp Pulse Resp BP Pulse Ox 98.1 F 69 19 118/74 97 03/16/17 17:41 03/16/17 17:41 03/16/17 17:41 03/16/17 17:41 03/16/17 17:41 Intake and Output: 03/17/17 03/17/17 06:59 18:59 Intake Total 880 Balance 880 - Medications Medications: Current Medications Acetaminophen (Tylenol 325mg Tab) 650 mg PO Q6H PRN PRN Reason: Pain, moderate (4-7) Last Admin: 03/15/17 10:17 Dose: 650 mg Diphenhydramine HCl (Benadryl) 50 mg IVP Q8 PRN PRN Reason: Itching / Pruritus Heparin Sodium (Porcine) (Heparin) 5,000 units SC Q8 LION PRN Reason: Protocol Last Admin: 03/17/17 05:31 Dose: 5,000 units Ceftaroline Fosamil 400 mg/ (Sodium Chloride) 100 mls @ 100 mls/hr IVPB Q12 LION PRN Reason: Protocol Stop: 03/22/17 10:01 Last Admin: 03/16/17 21:37 Dose: 100 mls/hr Ketorolac Tromethamine (Toradol) 30 mg IVP Q6H PRN PRN Reason: Pain, severe (8-10) Pantoprazole Sodium (Protonix Ec Tab) 40 mg PO 0600 [facility] Last Admin: 03/17/17 05:33 Dose: 40 mg - Labs Labs: 03/16/17 07:30 03/16/17 07:30 - Constitutional Appears: Non-toxic, No Acute Distress - Head Exam Head Exam: NORMAL INSPECTION - ENT Exam ENT Exam: Mucous Membranes Moist - Neck Exam Neck Exam: absent: Lymphadenopathy, Meningismus - Respiratory Exam Respiratory Exam: Decreased Breath Sounds - Cardiovascular Exam Cardiovascular Exam: +S1, +S2 - GI/Abdominal Exam GI & Abdominal Exam: Soft. absent: Tenderness Assessment and Plan - Assessment and Plan (Free Text) Plan: Assessment Consider axillary skin and skin structure infection, purulent, which may have been associated with hypersensitivity to deodorant, slowly improving pruritic skin rash, R/O bed bugs S/P treatment with Permethrin hyperthyroidism obesity with BMI 34 history of hand surgery Plan on Teflaro day 3 pending further surgical plan of treatment, wound cx; blood cx are negative Permethrin cream has been given to the patient will monitor clinically discussed with Dr. Adorno
--- NOTE | 2017-03-17 14:49 | CP.PCM.PN ---
<Compa Gregory - Last Filed: 03/17/17 16:14> Subjective - Date & Time of Evaluation Date of Evaluation: 03/17/17 Time of Evaluation: 14:48 - Subjective Subjective: Medicine Progress note. Dr. Adorno Pt seen and examined at bedside. No acute events overnight. Patient states that his lesions are improving and becoming smaller. Pain well controlled. No F/C. No CP/SOB. No N/V/D. Denies any new complaints. Objective - Vital Signs/Intake and Output Vital Signs (last 24 hours): Temp Pulse Resp BP Pulse Ox 98 F 62 20 106/60 99 03/17/17 08:36 03/17/17 08:36 03/17/17 08:36 03/17/17 08:36 03/17/17 08:36 Intake and Output: 03/17/17 03/17/17 06:59 18:59 Intake Total 880 720 Balance 880 720 - Medications Medications: Current Medications Acetaminophen (Tylenol 325mg Tab) 650 mg PO Q6H PRN PRN Reason: Pain, moderate (4-7) Last Admin: 03/15/17 10:17 Dose: 650 mg Diphenhydramine HCl (Benadryl) 50 mg IVP Q8 PRN PRN Reason: Itching / Pruritus Heparin Sodium (Porcine) (Heparin) 5,000 units SC Q8 LION PRN Reason: Protocol Last Admin: 03/17/17 13:45 Dose: 5,000 units Ceftaroline Fosamil 400 mg/ (Sodium Chloride) 100 mls @ 100 mls/hr IVPB Q12 LION PRN Reason: Protocol Stop: 03/22/17 10:01 Last Admin: 03/17/17 10:09 Dose: 100 mls/hr Ketorolac Tromethamine (Toradol) 30 mg IVP Q6H PRN PRN Reason: Pain, severe (8-10) Pantoprazole Sodium (Protonix Ec Tab) 40 mg PO 0600 [facility] Last Admin: 03/17/17 05:33 Dose: 40 mg - Labs Labs: 03/17/17 06:50 03/17/17 06:50 - Constitutional Appears: Well, No Acute Distress - Head Exam Head Exam: ATRAUMATIC, NORMAL INSPECTION, NORMOCEPHALIC - Eye Exam Eye Exam: EOMI, Normal appearance - ENT Exam ENT Exam: Mucous Membranes Moist - Neck Exam Neck Exam: Full ROM - Respiratory Exam Respiratory Exam: Clear to Ausculation Bilateral, NORMAL BREATHING PATTERN. absent: Rales, Rhonchi, Wheezes, Respiratory Distress - Cardiovascular Exam Cardiovascular Exam: RRR, +S1, +S2. absent: JVD - GI/Abdominal Exam GI & Abdominal Exam: Soft. absent: Guarding, Rigid, Tenderness - Extremities Exam Additional comments: Right axilla: Skin indurated. Erythema. Tenderness to palpation, improved compared to yesterday. Left axilla: skin indurated. erythema improving. mild tenderness to palpation. - Back Exam Back Exam: NORMAL INSPECTION - Neurological Exam Neurological Exam: Alert, Awake, Oriented x3 - Psychiatric Exam Psychiatric exam: Normal Affect, Normal Mood - Skin Skin Exam: Erythema, Normal Color, Warm Assessment and Plan - Assessment and Plan (Free Text) Assessment: 46 y/o M with PMH of hyperthyroidism presents with hidradentitis suppurativa and rash likely thought to be bed bugs, new deodorant use. Patient is currently undergoing treatment with Teflaro for Hidradentitis suppurativa and is s/p Permetherin use for rash. 1. Hidradentitis suppurativa consider secondary to new deodorant use Continue Teflaro Blood cultures negative Follow Surgery recs no need for surgical I&D suggest continue IV Abx until Tuesday Follow up with Dr. Mendez in 2 weeks Follow ID recs 2. Rash, likely bed bugs S/p Permethrin cream Benadryl PRN for itching Contact precautions 3. Pt reports hx of Hypothyroid no meds at home TSH wnl 4. PPX Heparin Protonix Discussed case with Dr. Kyree Gregory PGY1 <Lex Adorno - Last Filed: 03/17/17 16:39> Objective - Vital Signs/Intake and Output Vital Signs (last 24 hours): Temp Pulse Resp BP Pulse Ox 98 F 62 20 106/60 99 03/17/17 08:36 03/17/17 08:36 03/17/17 08:36 03/17/17 08:36 03/17/17 08:36 Intake and Output: 03/17/17 03/17/17 06:59 18:59 Intake Total 880 720 Balance 880 720 - Medications Medications: Current Medications Acetaminophen (Tylenol 325mg Tab) 650 mg PO Q6H PRN PRN Reason: Pain, moderate (4-7) Last Admin: 03/15/17 10:17 Dose: 650 mg Diphenhydramine HCl (Benadryl) 50 mg IVP Q8 PRN PRN Reason: Itching / Pruritus Heparin Sodium (Porcine) (Heparin) 5,000 units SC Q8 LION PRN Reason: Protocol Last Admin: 03/17/17 13:45 Dose: 5,000 units Ceftaroline Fosamil 400 mg/ (Sodium Chloride) 100 mls @ 100 mls/hr IVPB Q12 LION PRN Reason: Protocol Stop: 03/22/17 10:01 Last Admin: 03/17/17 10:09 Dose: 100 mls/hr Ketorolac Tromethamine (Toradol) 30 mg IVP Q6H PRN PRN Reason: Pain, severe (8-10) Pantoprazole Sodium (Protonix Ec Tab) 40 mg PO 0600 [facility] Last Admin: 03/17/17 05:33 Dose: 40 mg - Labs Labs: 03/17/17 06:50 03/17/17 06:50 Attending/Attestation - Attestation I have personally seen and examined this patient.: Yes I have fully participated in the care of the patient.: Yes I have reviewed all pertinent clinical information, including history, physical exam and plan: Yes Notes (Text): 03/17/17 16:38 46 year old male who presented with rash and hydradenitis supprativa. He is being followed by surgery and ID. Continue with iv antibiotics. Leukocytosis has resolved. Wound culture is still pending. Lex Adorno MD Hospitalist.
--- NOTE | 2017-03-17 18:17 | CP.PCM.PN ---
<Mark Anthony Pisano - Last Filed: 03/17/17 18:17> Subjective - Date & Time of Evaluation Date of Evaluation: 03/17/17 Time of Evaluation: 11:00 - Subjective Subjective: Pt seen and examined. Reports improvement of pain in axilla b/l. No F/C. No CP/ SOB. No N/V/D. No active drainage. Vast improvement in axilla erythema. Objective - Vital Signs/Intake and Output Vital Signs (last 24 hours): Temp Pulse Resp BP Pulse Ox 97.7 F 57 L 20 112/67 99 03/17/17 17:15 03/17/17 17:15 03/17/17 17:15 03/17/17 17:15 03/17/17 17:15 Intake and Output: 03/17/17 03/17/17 06:59 18:59 Intake Total 880 720 Balance 880 720 - Medications Medications: Current Medications Acetaminophen (Tylenol 325mg Tab) 650 mg PO Q6H PRN PRN Reason: Pain, moderate (4-7) Last Admin: 03/15/17 10:17 Dose: 650 mg Diphenhydramine HCl (Benadryl) 50 mg IVP Q8 PRN PRN Reason: Itching / Pruritus Heparin Sodium (Porcine) (Heparin) 5,000 units SC Q8 LION PRN Reason: Protocol Last Admin: 03/17/17 13:45 Dose: 5,000 units Ceftaroline Fosamil 400 mg/ (Sodium Chloride) 100 mls @ 100 mls/hr IVPB Q12 LION PRN Reason: Protocol Stop: 03/22/17 10:01 Last Admin: 03/17/17 10:09 Dose: 100 mls/hr Ketorolac Tromethamine (Toradol) 30 mg IVP Q6H PRN PRN Reason: Pain, severe (8-10) Pantoprazole Sodium (Protonix Ec Tab) 40 mg PO 0600 LION Last Admin: 03/17/17 05:33 Dose: 40 mg - Labs Labs: 03/17/17 06:50 03/17/17 06:50 - Constitutional Appears: No Acute Distress - Head Exam Head Exam: NORMOCEPHALIC - Eye Exam Eye Exam: Normal appearance - ENT Exam ENT Exam: Mucous Membranes Moist - Respiratory Exam Respiratory Exam: NORMAL BREATHING PATTERN - Cardiovascular Exam Cardiovascular Exam: +S1, +S2 - GI/Abdominal Exam GI & Abdominal Exam: Soft - Neurological Exam Neurological Exam: Alert, Awake, Oriented x3 - Psychiatric Exam Psychiatric exam: Normal Mood - Skin Skin Exam: Normal Color, Warm Additional comments: +hidradenitis suppuritiva b/l axillae Assessment and Plan - Assessment and Plan (Free Text) Assessment: 46M with hidradenitis suppurativa -Vast improvement, no fluctuant sites. - pain control - Recommend IV Abx until Tuesday at least -Chlorhexidine soap wash c/w this at home -F/u w/ Dr. Mendez in 2 weeks -D/w Dr. Vanessa Pisano PGY-2 <Scott Mendez - Last Filed: 03/20/17 21:37> Objective - Vital Signs/Intake and Output Vital Signs (last 24 hours): Temp Pulse Resp BP Pulse Ox 98.2 F 68 20 118/57 L 97 03/18/17 17:57 03/18/17 17:57 03/18/17 17:57 03/18/17 17:57 03/18/17 17:57 - Labs Labs: 03/18/17 06:10 03/18/17 06:10 Attending/Attestation - Attestation I have personally seen and examined this patient.: Yes I have fully participated in the care of the patient.: Yes I have reviewed all pertinent clinical information, including history, physical exam and plan: Yes Notes (Text): 03/20/17 21:36 Pt was seen and examined at bedside Agree with above note and assessment Pt with B/L Axillary Hydradenitis with self draining small abscess Pt is improving clinically Personal hygeine Local wound care C.w IV antibiotics Reg diet Plan d.w pt in detail.
[2017-03-18] MEDS: Pantoprazole 40 mg EC Tab PO SCH (05:52)
[2017-03-18 06:45] LABS: BASO # 0.03 K/mm3 (0.0-2.0); BASO % 0.3 % (0.0-3.0); EOS # 0.4 (0.0-0.7); EOS % 4.6 % (1.5-5.0); GRAN # 5.17 (1.4-6.5); GRAN % 58.9 % (50.0-68.0); HEMATOCRIT 40.6 % (42.0-52.0); LYMPH # 2.7 (1.2-3.4); LYMPH % 30.5 % (22.0-35.0); MEAN CORPUSCULAR HEMOGLOBIN 30.9 pg (25.0-35.0); MEAN CORPUSCULAR HGB CONC 34.7 g/dl (31.0-37.0); MEAN PLATELET VOLUME 10.8 fl (7.0-11.0); MONO # 0.5 (0.1-0.6); MONO % 5.7 % (1.0-6.0); RED CELL DISTRIBUTION WIDTH 12.9 % (11.5-14.5); WHITE BLOOD COUNT 8.8 10^3/ul (4.5-11.0)
[2017-03-18 07:12] LABS: ALB/GLOB RATIO 1.3 (1.1-1.8); ALKALINE PHOSPHATASE 73 U/L (38-126); ALT/SGPT 41 U/L (7-56); AST/SGOT 38 U/L (17-59); BILIRUBIN,TOTAL 0.3 mg/dL (0.2-1.3); BLOOD UREA NITROGEN 13 mg/dL (7-21); CALCIUM 8.7 mg/dL (8.4-10.5); CARBON DIOXIDE 28 mmol/L (21-33); CHLORIDE 103 mmol/L (98-107); GFR AFRICAN-AMERICAN > 60; GLUCOSE,RANDOM 86 mg/dL (70-110); SODIUM 142 mmol/L (132-148); TOTAL PROTEIN 7.2 g/dL (5.8-8.3)
[2017-03-18 07:48] VITALS: O2SAT 97
--- NOTE | 2017-03-18 09:22 | CP.PCM.PN ---
<Krys Roland - Last Filed: 03/18/17 14:40> Subjective - Date & Time of Evaluation Date of Evaluation: 03/18/17 Time of Evaluation: 09:19 - Subjective Subjective: Progress note for Dr. Mendez Patient seen and examined at bedside. Patient doing well with no new complaints at this time. Patient says the pain is gone in the axilla. Patient denies F/C, AP/N/V/D, CP, SOB. Objective - Vital Signs/Intake and Output Vital Signs (last 24 hours): Temp Pulse Resp BP Pulse Ox 98 F 62 20 121/86 97 03/18/17 07:47 03/18/17 07:47 03/18/17 07:47 03/18/17 07:47 03/18/17 07:47 Intake and Output: 03/18/17 03/18/17 06:59 18:59 Intake Total 1200 120 Balance 1200 120 - Medications Medications: Current Medications Acetaminophen (Tylenol 325mg Tab) 650 mg PO Q6H PRN PRN Reason: Pain, moderate (4-7) Last Admin: 03/15/17 10:17 Dose: 650 mg Diphenhydramine HCl (Benadryl) 50 mg IVP Q8 PRN PRN Reason: Itching / Pruritus Heparin Sodium (Porcine) (Heparin) 5,000 units SC Q8 LION PRN Reason: Protocol Last Admin: 03/18/17 05:51 Dose: 5,000 units Ceftaroline Fosamil 400 mg/ (Sodium Chloride) 100 mls @ 100 mls/hr IVPB Q12 LION PRN Reason: Protocol Stop: 03/22/17 10:01 Last Admin: 03/17/17 22:54 Dose: 100 mls/hr Ketorolac Tromethamine (Toradol) 30 mg IVP Q6H PRN PRN Reason: Pain, severe (8-10) Pantoprazole Sodium (Protonix Ec Tab) 40 mg PO 0600 LION Last Admin: 03/18/17 05:52 Dose: 40 mg - Labs Labs: 03/18/17 06:10 03/18/17 06:10 - Constitutional Appears: Non-toxic, No Acute Distress - Head Exam Head Exam: NORMAL INSPECTION - Eye Exam Eye Exam: EOMI - ENT Exam ENT Exam: Mucous Membranes Moist - Respiratory Exam Respiratory Exam: NORMAL BREATHING PATTERN. absent: Accessory Muscle Use, Respiratory Distress - Cardiovascular Exam Cardiovascular Exam: REGULAR RHYTHM. absent: Bradycardia, Tachycardia - GI/Abdominal Exam GI & Abdominal Exam: Soft. absent: Tenderness Additional comments: obese abdomen - Extremities Exam Extremities Exam: Normal Inspection - Neurological Exam Neurological Exam: Alert, Awake - Psychiatric Exam Psychiatric exam: Normal Affect, Normal Mood - Skin Skin Exam: Dry, Warm Additional comments: b/l hiradenitis suppuritiva of axilla Assessment and Plan - Assessment and Plan (Free Text) Assessment: 46 y/o male with axillary hiradenitis suppuritiva Plan: - continue pain control with toradol prn - abx per ID (ceftaroline 400 mg IVq12) - patient should continue antiseptic soap washes at home upon discharge with chlorhexadine - patient will need to follow up with Dr. Mendez within 2 weeks of discharge -further recs per Dr. Vanessa Roland PGY-1 <Scott Mendez - Last Filed: 03/20/17 21:41> Objective - Vital Signs/Intake and Output Vital Signs (last 24 hours): Temp Pulse Resp BP Pulse Ox 98.2 F 68 20 118/57 L 97 03/18/17 17:57 03/18/17 17:57 03/18/17 17:57 03/18/17 17:57 03/18/17 17:57 - Labs Labs: 03/18/17 06:10 03/18/17 06:10 Attending/Attestation - Attestation I have fully participated in the care of the patient.: Yes I have reviewed all pertinent clinical information, including history, physical exam and plan: Yes Notes (Text): 03/20/17 21:40 Pt with B/L Axillary Hydradenitis with self draining small abscess Pt is improved clinically DC plan Local wound care PO antibiotics Reg diet Plan d.w primary team in detail.
--- NOTE | 2017-03-18 10:31 | CP.PCM.PN ---
Subjective - Date & Time of Evaluation Date of Evaluation: 03/18/17 Time of Evaluation: 09:20 - Subjective Subjective: Comfortable, feeling much better, no fevers, no nausea, no diarrhea. Objective - Vital Signs/Intake and Output Vital Signs (last 24 hours): Temp Pulse Resp BP Pulse Ox 97.7 F 57 L 20 112/67 99 03/17/17 17:15 03/17/17 17:15 03/17/17 17:15 03/17/17 17:15 03/17/17 17:15 Intake and Output: 03/17/17 03/18/17 18:59 06:59 Intake Total 720 1200 Balance 720 1200 - Medications Medications: Current Medications Acetaminophen (Tylenol 325mg Tab) 650 mg PO Q6H PRN PRN Reason: Pain, moderate (4-7) Last Admin: 03/15/17 10:17 Dose: 650 mg Diphenhydramine HCl (Benadryl) 50 mg IVP Q8 PRN PRN Reason: Itching / Pruritus Heparin Sodium (Porcine) (Heparin) 5,000 units SC Q8 LION PRN Reason: Protocol Last Admin: 03/18/17 05:51 Dose: 5,000 units Ceftaroline Fosamil 400 mg/ (Sodium Chloride) 100 mls @ 100 mls/hr IVPB Q12 LION PRN Reason: Protocol Stop: 03/22/17 10:01 Last Admin: 03/17/17 22:54 Dose: 100 mls/hr Ketorolac Tromethamine (Toradol) 30 mg IVP Q6H PRN PRN Reason: Pain, severe (8-10) Pantoprazole Sodium (Protonix Ec Tab) 40 mg PO 0600 [facility] Last Admin: 03/18/17 05:52 Dose: 40 mg - Labs Labs: 03/17/17 06:50 03/17/17 06:50 - Constitutional Appears: Non-toxic, No Acute Distress - Head Exam Head Exam: NORMAL INSPECTION - ENT Exam ENT Exam: Mucous Membranes Moist - Neck Exam Neck Exam: absent: Meningismus - Respiratory Exam Respiratory Exam: Decreased Breath Sounds - Cardiovascular Exam Cardiovascular Exam: +S1, +S2 - GI/Abdominal Exam GI & Abdominal Exam: Soft. absent: Tenderness - Extremities Exam Additional comments: decreased swelling and pain at the axillary areas Assessment and Plan - Assessment and Plan (Free Text) Plan: Assessment Consider axillary skin and skin structure infection with gram positive cocci, purulent, which may have been associated with hypersensitivity to deodorant, clinically improving - had spontaneous drainage pruritic skin rash, R/O bed bugs S/P treatment with Permethrin hyperthyroidism obesity with BMI 34 history of hand surgery Plan on Teflaro day 4 - can be switched to PO Doxycycline and Augmentin for another 5 -7 days with outpatient follow up with PMD and Surgery; wound cx showing gram positive cocci Permethrin cream has been given to the patient discussed with Dr. Adorno
--- NOTE | 2017-03-18 15:21 | CP.PCM.DIS ---
<Compa Gregory - Last Filed: 03/21/17 19:17> Provider - Provider Date of Admission: 03/15/17 13:51 Attending physician: Lex Adorno MD Primary care physician: Hermilo Pagan MD Consults: ID: Dr. Moss Surgery: Dr. Mendez Time Spent in preparation of Discharge (in minutes): 45 Hospital Course - Lab Results Lab Results: Micro Results 03/16/17 16:00 Abscess - Axilla Wound Culture - Preliminary Gram Positive Cocci 03/15/17 15:00 Urine,Clean Catch Urine Culture - Final No Growth (<1,000 CFU/ML) Most Recent Lab Values WBC 8.8 10^3/ul (4.5-11.0) 03/18/17 06:10 RBC 4.56 10^6/uL (3.5-6.1) 03/18/17 06:10 Hgb 14.1 g/dL (14.0-18.0) 03/18/17 06:10 Hct 40.6 % (42.0-52.0) L 03/18/17 06:10 MCV 89.0 fl (80.0-105.0) 03/18/17 06:10 MCH 30.9 pg (25.0-35.0) 03/18/17 06:10 MCHC 34.7 g/dl (31.0-37.0) 03/18/17 06:10 RDW 12.9 % (11.5-14.5) 03/18/17 06:10 Plt Count 202 10^3/uL (120.0-450.0) 03/18/17 06:10 MPV 10.8 fl (7.0-11.0) 03/18/17 06:10 Gran % 58.9 % (50.0-68.0) 03/18/17 06:10 Lymph % (Auto) 30.5 % (22.0-35.0) 03/18/17 06:10 [place] % (Auto) 5.7 % (1.0-6.0) 03/18/17 06:10 Eos % (Auto) 4.6 % (1.5-5.0) 03/18/17 06:10 Baso % (Auto) 0.3 % (0.0-3.0) 03/18/17 06:10 Gran # 5.17 (1.4-6.5) 03/18/17 06:10 Lymph # 2.7 (1.2-3.4) 03/18/17 06:10 [place] # 0.5 (0.1-0.6) 03/18/17 06:10 Eos # 0.4 (0.0-0.7) 03/18/17 06:10 Baso # 0.03 K/mm3 (0.0-2.0) 03/18/17 06:10 pO2 98 mm/Hg (30-55) H 03/14/17 21:10 VBG pH 7.42 (7.32-7.43) 03/14/17 21:10 VBG pCO2 42.0 (40-60) 03/14/17 21:10 VBG HCO3 27.2 mmol/l (21-28) 03/14/17 21:10 VBG Total CO2 28.5 mmol.L (22-28) H 03/14/17 21:10 VBG O2 Sat (Calc) 98.5 % (40-65) H 03/14/17 21:10 VBG Base Excess 2.4 mmol/L (0.0-2.0) H 03/14/17 21:10 VBG Potassium 4.3 mmol/L (3.6-5.2) 03/14/17 21:10 Sodium 134.0 mmol/L (132-148) 03/14/17 21:10 Chloride 104.0 mmol/L (98-107) 03/14/17 21:10 Glucose 121 mg/dl (75-110) H 03/14/17 21:10 Lactate 0.9 mmol/L (0.7-2.1) 03/14/17 21:10 FiO2 21.0 % 03/14/17 21:10 Sodium 142 mmol/L (132-148) 03/18/17 06:10 Potassium 4.0 mmol/L (3.6-5.0) 03/18/17 06:10 Chloride 103 mmol/L (98-107) 03/18/17 06:10 Carbon Dioxide 28 mmol/L (21-33) 03/18/17 06:10 Anion Gap 15 (10-20) 03/18/17 06:10 BUN 13 mg/dL (7-21) 03/18/17 06:10 Creatinine 0.9 mg/dL (0.5-1.4) 03/18/17 06:10 Est GFR ( Amer) > 60 03/18/17 06:10 Est GFR (Non-Af Amer) > 60 03/18/17 06:10 Random Glucose 86 mg/dL (70-110) 03/18/17 06:10 Calcium 8.7 mg/dL (8.4-10.5) 03/18/17 06:10 Total Bilirubin 0.3 mg/dL (0.2-1.3) 03/18/17 06:10 AST 38 U/L (17-59) 03/18/17 06:10 ALT 41 U/L (7-56) 03/18/17 06:10 Alkaline Phosphatase 73 U/L (38-126) 03/18/17 06:10 Total Protein 7.2 g/dL (5.8-8.3) 03/18/17 06:10 Albumin 4.0 g/dL (3.0-4.8) 03/18/17 06:10 Globulin 3.2 gm/dL 03/18/17 06:10 Albumin/Globulin Ratio 1.3 (1.1-1.8) 03/18/17 06:10 Free T4 1.45 ng/dL (0.78-2.19) 03/16/17 08:30 TSH 3rd Generation 4.58 mIU/mL (0.46-4.68) 03/16/17 08:30 Venous Blood Potassium 4.3 mmol/L (3.6-5.2) 03/14/17 21:10 - Hospital Course Hospital Course: Upon Admission: 46yo M with PMHx of Hypothyroid here for evaluation of bilateral axilla abscesses. Patient reports using a new deodorant for about 1 week. He state that he has never had symptoms such as this in the past. Reports subjective fevers at home. Bilateral axillary lesions with induration, erythema and some purulent drainage noted. He had some mild leukocytosis and hospital course with Tmax of 100.4F. He also reported possible bed bugs at his home. ID was consulted. Started on Tefloro. Treated with Permethrin cream. Surgery was consulted. No surgical intervention done as the lesions were actively draining. Patient's clinical status improved over the course of his hospital stay and he was discharged home in stable condition after modest improvement. He was discharged on Augmentin and Doxycycline. All findings, results, and the follow up plan was discussed with the patient at length. He understands and agrees. He is to follow up with his PMD and with surgery clinic. All questions and concerns addressed. 1. Hidradenitis Suppurativa; improving. Augmenting and Doxy. 2. Bed bugs; Treated and pruritis improved 3. Hx of Hypothyroid; No home meds. TSH and FT4 wnl Upon Discharge: Patient is cleared for discharge as per Dr. Adorno 1. Follow up with your PMD in one week. 2. Follow up with Dr. Mendez in one week. Call for appointment 3. Take antibiotics as directed to completion. (Prescriptions sent to [facility] pharmacy) 4. Return to the ER with any concerning symptoms. New Prescriptions: 1. Doxycycline 100mg PO BID #14/0 2. Augmentin 875mg PO BID #14/0 Discharge Exam - Head Exam Head Exam: ATRAUMATIC, NORMAL INSPECTION, NORMOCEPHALIC - Eye Exam Eye Exam: EOMI - ENT Exam ENT Exam: Mucous Membranes Moist - Neck Exam Neck exam: Full Rom - Respiratory Exam Respiratory Exam: Clear to PA & Lateral, NORMAL BREATHING PATTERN, UNREMARKABLE. absent: Accessory Muscle Use, Rales, Rhonchi, Wheezes, Respiratory Distress - Extremities Exam Additional comments: left axilla: Erythema improving. Mild induration. No active drainage at the present time. right Axilla: Erythema improving. Mild induration. No active drainage at the present time. - Neurological Exam Neurological exam: Alert, CN II-XII Intact, Oriented x3 - Psychiatric Exam Psychiatric exam: Normal Affect, Normal Mood - Skin Skin Exam: Dry, Intact Discharge Plan - Discharge Medications Prescriptions: Amoxicillin/Clavulanate [Augmentin 875 MG-125 MG] 1 tab PO BID #14 tab Doxycycline Hyclate [Doryx] 100 mg PO BID #14 cap - Follow Up Plan Condition: STABLE Disposition: HOME/ ROUTINE Instructions: Cellulitis (DC), Cellulitis (GEN) Additional Instructions: Patient is cleared for discharge as per Dr. Adorno 1. Follow up with your PMD in one week. 2. Follow up with Dr. Mendez in one week. Call for appointment 3. Take antibiotics as directed to completion. (Prescriptions sent to [facility] pharmacy) 4. Return to the ER with any concerning symptoms. New Prescriptions: 1. Doxycycline 100mg PO BID #14/0 2. Augmentin 875mg PO BID #14/0 Referrals: Scott Mendez MD [Medical Doctor] - <Lex Adorno - Last Filed: 03/21/17 20:17> Provider - Provider Date of Admission: 03/15/17 13:51 Attending physician: Lex Adorno MD Primary care physician: Hermilo Pagan MD Hospital Course - Lab Results Lab Results: Micro Results 03/16/17 16:00 Abscess - Axilla Gram Stain - Final 03/16/17 16:00 Abscess - Axilla Wound Culture - Final Staphylococcus Aureus 03/15/17 15:00 Urine,Clean Catch Urine Culture - Final No Growth (<1,000 CFU/ML) Most Recent Lab Values WBC 8.8 10^3/ul (4.5-11.0) 03/18/17 06:10 RBC 4.56 10^6/uL (3.5-6.1) 03/18/17 06:10 Hgb 14.1 g/dL (14.0-18.0) 03/18/17 06:10 Hct 40.6 % (42.0-52.0) L 03/18/17 06:10 MCV 89.0 fl (80.0-105.0) 03/18/17 06:10 MCH 30.9 pg (25.0-35.0) 03/18/17 06:10 MCHC 34.7 g/dl (31.0-37.0) 03/18/17 06:10 RDW 12.9 % (11.5-14.5) 03/18/17 06:10 Plt Count 202 10^3/uL (120.0-450.0) 03/18/17 06:10 MPV 10.8 fl (7.0-11.0) 03/18/17 06:10 Gran % 58.9 % (50.0-68.0) 03/18/17 06:10 Lymph % (Auto) 30.5 % (22.0-35.0) 03/18/17 06:10 [place] % (Auto) 5.7 % (1.0-6.0) 03/18/17 06:10 Eos % (Auto) 4.6 % (1.5-5.0) 03/18/17 06:10 Baso % (Auto) 0.3 % (0.0-3.0) 03/18/17 06:10 Gran # 5.17 (1.4-6.5) 03/18/17 06:10 Lymph # 2.7 (1.2-3.4) 03/18/17 06:10 [place] # 0.5 (0.1-0.6) 03/18/17 06:10 Eos # 0.4 (0.0-0.7) 03/18/17 06:10 Baso # 0.03 K/mm3 (0.0-2.0) 03/18/17 06:10 pO2 98 mm/Hg (30-55) H 03/14/17 21:10 VBG pH 7.42 (7.32-7.43) 03/14/17 21:10 VBG pCO2 42.0 (40-60) 03/14/17 21:10 VBG HCO3 27.2 mmol/l (21-28) 03/14/17 21:10 VBG Total CO2 28.5 mmol.L (22-28) H 03/14/17 21:10 VBG O2 Sat (Calc) 98.5 % (40-65) H 03/14/17 21:10 VBG Base Excess 2.4 mmol/L (0.0-2.0) H 03/14/17 21:10 VBG Potassium 4.3 mmol/L (3.6-5.2) 03/14/17 21:10 Sodium 134.0 mmol/L (132-148) 03/14/17 21:10 Chloride 104.0 mmol/L (98-107) 03/14/17 21:10 Glucose 121 mg/dl (75-110) H 03/14/17 21:10 Lactate 0.9 mmol/L (0.7-2.1) 03/14/17 21:10 FiO2 21.0 % 03/14/17 21:10 Sodium 142 mmol/L (132-148) 03/18/17 06:10 Potassium 4.0 mmol/L (3.6-5.0) 03/18/17 06:10 Chloride 103 mmol/L (98-107) 03/18/17 06:10 Carbon Dioxide 28 mmol/L (21-33) 03/18/17 06:10 Anion Gap 15 (10-20) 03/18/17 06:10 BUN 13 mg/dL (7-21) 03/18/17 06:10 Creatinine 0.9 mg/dL (0.5-1.4) 03/18/17 06:10 Est GFR ( Amer) > 60 03/18/17 06:10 Est GFR (Non-Af Amer) > 60 03/18/17 06:10 Random Glucose 86 mg/dL (70-110) 03/18/17 06:10 Calcium 8.7 mg/dL (8.4-10.5) 03/18/17 06:10 Total Bilirubin 0.3 mg/dL (0.2-1.3) 03/18/17 06:10 AST 38 U/L (17-59) 03/18/17 06:10 ALT 41 U/L (7-56) 03/18/17 06:10 Alkaline Phosphatase 73 U/L (38-126) 03/18/17 06:10 Total Protein 7.2 g/dL (5.8-8.3) 03/18/17 06:10 Albumin 4.0 g/dL (3.0-4.8) 03/18/17 06:10 Globulin 3.2 gm/dL 03/18/17 06:10 Albumin/Globulin Ratio 1.3 (1.1-1.8) 03/18/17 06:10 Free T4 1.45 ng/dL (0.78-2.19) 03/16/17 08:30 TSH 3rd Generation 4.58 mIU/mL (0.46-4.68) 03/16/17 08:30 Venous Blood Potassium 4.3 mmol/L (3.6-5.2) 03/14/17 21:10 Attending/Attestation - Attestation I have personally seen and examined this patient.: Yes I have fully participated in the care of the patient.: Yes I have reviewed all pertinent clinical information, including history, physical exam and plan: Yes Notes (Text): 03/21/17 20:16 46 year old male who presented with rash and hydradenitis supprativa. He had fever and leukocytosis as well. He was seen by ID and surgery. His symptoms improved with iv antibiotics. He is discharged home with po antibiotics as above. Lex Adorno MD Hospitalist.
[2017-03-18 17:58] VITALS: BP 118/57; PULSE 68; TEMP 98.2
== END 2017-03-18 18:54 | disposition home or self-care (01) ==
LOC: ED 20:03 → ERH 23:10 → 3RNO 03-15 00:34 → OBSVTOIN 03-15 13:51
PROVIDERS: ADMIT Internal Medicine; ATTEND Internal Medicine
DX: L73.2 Hidradenitis suppurativa (principal); E05.90 Thyrotoxicosis, unspecified without thyrotoxic crisis or storm; B95.61 Methicillin susceptible Staphylococcus aureus infection as the cause of diseases classified elsewhere; L29.9 Pruritus, unspecified; E03.9 Hypothyroidism, unspecified; E66.9 Obesity, unspecified; Z68.34 Body mass index [BMI] 34.0-34.9, adult; F41.9 Anxiety disorder, unspecified; F32.89 Other specified depressive episodes; R21 Rash and other nonspecific skin eruption; Z83.3 Family history of diabetes mellitus